=== PATIENT | female | born 1965 | race Caucasian/White ===

== ENCOUNTER 2016-03-17 00:44 | Emergency (ER) | payer MEDICARE, OTHER ==
[2016-03-17 01:51] LABS: ALANINE AMINOTRANSFERASE 268 U/L (9-52); ALBUMIN 4.6 g/dL (3.5-5.0); ALCOHOL 183 mg/dL (NONE DETECTED); ALKALINE PHOSPHATASE 141 U/L (38-126); ANION GAP 11 (5-19); ASPARTATE AMINO TRANSFERASE 685 U/L (14-36); BILIRUBIN,TOTAL 0.5 mg/dL (0.2-1.3); BLOOD UREA NITROGEN 12 mg/dL (7-20); CALCIUM 9.3 mg/dL (8.4-10.2); CARBON DIOXIDE 26 mmol/L (22-30); CHLORIDE 101 mmol/L (98-107); CREATINE KINASE 66 U/L (30-135); CREATININE RESULT 0.71 mg/dL (0.52-1.25); GLUCOSE 99 mg/dL (75-110); POTASSIUM 4.1 mmol/L (3.6-5.0); SODIUM 138.2 mmol/L (137-145); TOTAL PROTEIN 6.8 g/dL (6.3-8.2)
[2016-03-17 01:56] LABS: ABSOLUTE EOSINOPHILS # (AUTO) 0.1 10^3/uL (0.0-0.6); ABSOLUTE LYMPHOCYTES (AUTO) 1.9 10^3/uL (0.5-4.7); ABSOLUTE MONOCYTES (AUTO) 0.5 10^3/uL (0.1-1.4); ABSOLUTE NEUT (AUTO) 1.9 10^3/uL (1.7-8.2); BASOPHILS % (AUTO) 0.4 % (0-2); EOSINOPHILS % (AUTO) 2.3 % (0-6); HEMATOCRIT 39.6 % (36.0-47.0); HGB HCT DIFFERENCE -0.6; LYMPHOCYTES % (AUTO) 42.4 % (13-45); MEAN CORPUSCULAR HEMOGLOBIN 29.2 pg (27.0-33.4); MEAN CORPUSCULAR VOLUME 89 fl (80-97); MONOCYTES % (AUTO) 11.6 % (3-13); RED BLOOD COUNT 4.47 10^6/uL (3.72-5.28); RED CELL DISTRIBUTION WIDTH 12.9 % (11.5-14.0); SEGMENTED NEUTROPHILS % (AUTO) 43.3 % (42-78); WHITE BLOOD COUNT 4.4 10^3/uL (4.0-10.5)
[2016-03-17 02:00] LABS: CREATINE KINASE MB 1.35 ng/mL (<4.55)
[2016-03-17 02:02] LABS: TROPONIN I < 0.012 ng/mL
[2016-03-17 02:09] LABS: APPEARANCE,URINE CLEAR; BILIRUBIN,URINE NEGATIVE (NEGATIVE); GLUCOSE, URINE NEGATIVE (NEGATIVE); KETONES,URINE NEGATIVE (NEGATIVE); LEUKOCYTE ESTERASE,URINE NEGATIVE (NEGATIVE); NITRITE,URINE NEGATIVE (NEGATIVE); PROTEIN,URINE NEGATIVE (NEGATIVE); URINE SPECIFIC GRAVITY 1.003; UROBILINOGEN,URINE NEGATIVE mg/dL (<2.0)
--- NOTE | 2016-03-17 02:11 | ER Document Report ---
ED Fall - General Chief Complaint: Fall Stated Complaint: FALL,SYNCOPE Time seen by provider: 02:08 Mode of Arrival: Medic Information source: Patient TRAVEL OUTSIDE OF THE [place] IN LAST 30 DAYS: No - HPI Patient complains to provider of: fall, head injury with loss of consciousness Occurred: Just prior to arrival Where: Home Context: Lost balance Associated symptoms: Lost consciousness Location of injury/pain: Head Quality of pain: No pain Severity: Mild Notes: Patient is a 51-year-old female with a history of a nonoperable brain stem tumor , lupus and depression, who presents to the emergency room with her complaining of slip and fall this evening, causing a head injury with a brief loss of consciousness lasting less than 1 minute, patient was told by her physician that she could take up to six 10 mg amitriptyline in the evening which she did so this evening, and then took one hydroxychloroquine, and states that prior to this she had 3-4 mixed drinks, reports she is typically unsteady on her feet due to her inoperable brainstem tumor, the alcohol and the medications as they seemed to make her even more unsteady causing her to fall backwards hitting her head on the wall putting a large hole in the drywall and causing a loss of consciousness, has been was able to awaken her almost immediately, there was no nausea or vomiting, she denies any blurred vision, no headache, she denies any pain at the present time - Related data Allergies/Adverse Reactions: cephalexin monohydrate [From Keflex] Allergy (Verified 05/10/14 13:21) Past Medical History - General Information source: Patient - Social History Smoking Status: Unknown if Ever Smoked Family History: Arthritis, CAD, CVA, DM, Hyperlipidemia, Hypertension, Malignancy, Thyroid Disfunction - Past Medical History Cardiac Medical History: Reports: Hx DVT Malignancy Medical History: Reports: Hx Brain Cancer Musculoskeltal Medical History: Reports Hx Musculoskeletal Deformity, Reports Hx Musculoskeletal Trauma Psychiatric Medical History: Reports: Hx Depression Past Surgical History: Reports: Hx Abdominal Surgery - gastric bypass, Hx Cholecystectomy, Hx Hysterectomy, Hx Orthopedic Surgery - right knee, left ankle , Hx Tonsillectomy - Immunizations Immunizations up to date: Yes Hx Diphtheria, Pertussis, Tetanus Vaccination: Yes Hx Pneumococcal Vaccination: 01/17/14 Review of Systems - Review of Systems Constitutional: No symptoms reported EENT: No symptoms reported Cardiovascular: No symptoms reported Respiratory: No symptoms reported Gastrointestinal: No symptoms reported Genitourinary: No symptoms reported Female Genitourinary: No symptoms reported Musculoskeletal: No symptoms reported Skin: No symptoms reported Hematologic/Lymphatic: No symptoms reported Neurological/Psychological: See HPI -: Yes All other systems reviewed and negative Physical Exam - Vital signs Vitals: Temp Pulse Resp BP Pulse Ox 98.2 F 68 18 140/80 H 96 03/17/16 00:52 03/17/16 00:52 03/17/16 00:52 03/17/16 00:52 03/17/16 00:52 Interpretation: Normal - General General appearance: Alert In distress: None Notes: EtOH on breath - HEENT Head: Normocephalic, Atraumatic Eyes: Normal Pupils: PERRL - Respiratory Respiratory status: No respiratory distress Chest status: Nontender Breath sounds: Normal Chest palpation: Normal - Cardiovascular Rhythm: Regular Heart sounds: Normal auscultation Murmur: No - Abdominal Inspection: Normal Distension: No distension Bowel sounds: Normal Tenderness: Nontender Organomegaly: No organomegaly - Back Back: Normal, Nontender - Extremities General upper extremity: Normal inspection, Nontender, Normal color, Normal ROM , Normal temperature General lower extremity: Normal inspection, Nontender, Normal color, Normal ROM , Normal temperature, Normal weight bearing. No: Inocencio's sign - Neurological Neuro grossly intact: Yes Cognition: Normal Orientation: AAOx4 [place] Coma Scale Eye Opening: Spontaneous [place] Coma Scale Verbal: Oriented [place] Coma Scale Motor: Obeys Commands Dora Coma Scale Total: 15 Speech: Normal Motor strength normal: LUE, RUE, LLE, RLE Sensory: Normal - Psychological Associated symptoms: Normal affect, Normal mood - Skin Skin Temperature: Warm Skin Moisture: Dry Skin Color: Normal Course - Re-evaluation Re-evalutation: 03/17/16 02:48 Patient resting comfortably, has no complaints at present time, in the emergency room (agrees to get her home safely, lab and imaging findings were discussed with patient and at bedside, she was advised to stop drinking alcohol as she is now having some evidence of liver function abnormality as a result, follow up with her primary care provider and specialists or return if symptoms worsen, patient and acknowledge understanding and agreement with this plan - Vital Signs Vital signs: Temp Pulse Resp BP Pulse Ox 98.2 F 66 13 106/72 96 03/17/16 00:52 03/17/16 02:45 03/17/16 02:28 03/17/16 02:45 03/17/16 02:28 - Laboratory Result Diagrams: 03/17/16 00:57 03/17/16 00:57 Laboratory results interpreted by me: 03/17/16 00:57 AST 685 H ALT 268 H Alkaline Phosphatase 141 H - Diagnostic Test Radiology reviewed: Image reviewed, Reports reviewed - EKG Interpretation by Me EKG shows normal: Sinus rhythm Rate: Normal Rhythm: NSR Discharge - Discharge Clinical Impression: Liver function abnormality Head injury Qualifiers: Encounter type: initial encounter Qualified Code(s): S09.90XA - Unspecified injury of head, initial encounter Alcohol intoxication Qualifiers: Complication of substance-induced condition: with unspecified complication Qualified Code(s): F10.129 - Alcohol abuse with intoxication, unspecified Condition: Stable Disposition: HOME, SELF-CARE Instructions: Acute Alcohol Intoxication ([facility]), Liver Function Abnormality ([facility] ), Head Injury Precautions ([facility]) Additional Instructions: Stop drinking alcohol. There is evidence today of liver function abnormality does appear excessive alcohol consumption. Follow-up with your primary care provider and your specialist within the next week. Return to the emergency room immediately if symptoms worsen or any additional concerns.
[2016-03-17 02:23] LABS: URINE BARBITURATES SCREEN NEGATIVE; URINE METHADONE SCREEN NEGATIVE; URINE OPIATES LOW NEGATIVE; URINE PHENCYCLIDINE SCREEN NEGATIVE
[2016-03-17 03:14] VITALS: BP 111/71
--- NOTE | 2016-03-17 09:36 | EKG REPORT ---
SEVERITY:- BORDERLINE ECG - SINUS RHYTHM BORDERLINE PROLONGED QT INTERVAL : Confirmed by: Yuki Spann MD 17-Mar-2016 09:35:35
== END 2016-03-17 03:16 | disposition home or self-care (01) ==
LOC: ER 00:44
DX: S09.90XA Unspecified injury of head, initial encounter (principal); F10.129 Alcohol abuse with intoxication, unspecified; R94.5 Abnormal results of liver function studies; R55 Syncope and collapse; D49.6 Neoplasm of unspecified behavior of brain; W01.198A Fall on same level from slipping, tripping and stumbling with subsequent striking against other object, initial encounter; Y92.009 Unspecified place in unspecified non-institutional (private) residence as the place of occurrence of the external cause; Z86.718 Personal history of other venous thrombosis and embolism; Z98.84 Bariatric surgery status; Z90.49 Acquired absence of other specified parts of digestive tract; Z90.710 Acquired absence of both cervix and uterus
CPT/HCPCS: 36415; 70450; 80053; 80307; 81001; 82550; 82553; 84484; 85025; 93005; 93010; 99284

== ENCOUNTER → 2017-12-24 | Outpatient (CLI) | payer MEDICARE, OTHER ==
--- NOTE | 2017-12-24 11:08 | RADIOLOGY REPORT (SQ) ---
EXAM DESCRIPTION: SHOULDER LEFT 2 OR MORE VIEWS COMPLETED DATE/TIME: 12/24/2017 10:47 am REASON FOR STUDY: PAIN IN LEFT SHOULDER M25.512 PAIN IN LEFT SHOULDER COMPARISON: None. NUMBER OF VIEWS: Three views. TECHNIQUE: Internal rotation, external rotation, and Y view images acquired of the left shoulder. LIMITATIONS: None. FINDINGS: MINERALIZATION: Normal. BONES: No acute fracture or dislocation. No worrisome bone lesions. JOINTS: No dislocation. VISUALIZED LUNGS AND RIBS: No pneumothorax. No rib fracture. SOFT TISSUES: No radiopaque foreign body. OTHER: No other significant finding. IMPRESSION: NEGATIVE STUDY OF THE LEFT SHOULDER. NO RADIOGRAPHIC EVIDENCE OF ACUTE INJURY. TECHNICAL DOCUMENTATION: JOB ID: [id number]- All Rights Reserved Reading location - IP/workstation name: [email or web address]
== END ==
LOC: RAD 10:15
PROVIDERS: ATTEND Physician Assistant
DX: M25.512 Pain in left shoulder (principal)

== ENCOUNTER → 2018-02-02 | Outpatient (CLI) | payer MEDICARE, OTHER ==
[~2018-02-02] MED LIST: DIAZEPAM 5 MG TABLET ONE
--- NOTE | 2018-02-02 14:10 | RADIOLOGY REPORT (SQ) ---
EXAM DESCRIPTION: MRI LUMBAR SPINE WITHOUT COMPLETED DATE/TIME: 02/02/2018 12:22 pm REASON FOR STUDY: OTHER INTERVERTEBRAL DISC DEGENERATION, LUMBOSACRAL REGION (M51.37), RADICU M51.37 OTHER INTERVERTEBRAL DISC DEGENERATION, LUMBOSACRAL R COMPARISON: None. TECHNIQUE: Sagittal and Axial imaging includes T1, T2, STIR and gradient echo sequences. Coronal T2/ HASTE imaging. LIMITATIONS: None. FINDINGS: VISUALIZED UPPER ABDOMEN: Limited evaluation. No acute or suspicious findings suggested. SEGMENTATION: No transitional anatomy. The lowest well-developed disc space is labeled L5-S1. ALIGNMENT: Anatomic. VERTEBRAE: Intact. BONE MARROW: Normal. No marrow replacement or reactive changes. DISC SIGNAL: Diffuse decreased T2 weighted intervertebral disc signal. Disc space loss of height at L1-2 and L2-3 POSTERIOR ELEMENTS: Generally intact. No pars defect evident. HARDWARE: None in the spine. CORD AND CONUS: Normal in size and signal intensity. Conus at the L1-2 level. SOFT TISSUES: No aortic aneurysm seen. No bulky retroperitoneal adenopathy or mass. No paraspinal mas s or fluid. T11-12: Mild bilateral facet arthropathy. Otherwise unremarkable. T12-L1: Mild bilateral facet arthropathy. Otherwise unremarkable. L1-L2: Minimal posterior disc bulging and mild bilateral facet arthropathy. No central or foraminal encroachment. L2-L3: Minimal posterior disc bulging and mild bilateral facet arthropathy. No central or foraminal encroachment. L3-L4: Minimal posterior disc bulging and mild bilateral facet arthropathy. No significant central o r foraminal encroachment L4-L5: Mild bilateral facet arthropathy. Minimal posterior disc bulging. No significant central or foraminal encroachment. L5-S1: Mild bilateral facet arthropathy. No central or foraminal encroachment. SACRUM: Visualized upper sacrum intact. OTHER: No other significant findings. IMPRESSION: Multilevel facet arthropathy. No significant central or foraminal encroachment. TECHNICAL DOCUMENTATION: JOB ID: [id number]- All Rights Reserved Reading location - IP/workstation name: [email or web address]
== END ==
LOC: RAD 11:06
PROVIDERS: ATTEND Physician Assistant
DX: M51.37 Other intervertebral disc degeneration, lumbosacral region (principal)
CPT/HCPCS: 72148; A9270